=== PATIENT | female | born 1965 | race Caucasian/White ===

== ENCOUNTER 2017-05-15 08:33 | Day surgery (SDC) | payer BC ==
--- NOTE | 2017-05-15 07:45 | HP ---
DATE OF SURGERY: 05/15/2017 HISTORY OF PRESENT ILLNESS: The patient is a 52 year-old with no prior colonoscopy. Occasional pain, occasional blood with wiping not for a long time though otherwise no change in bowel movements. She did have an aunt that had colon cancer in the past. It is felt that she would benefit from screening colonoscopy. Additionally, she had been having some epigastric pain and she is concerned about ulcer. I feel she would benefit additionally from screening colonoscopy. I feel she would benefit from diagnostic upper endoscopy. MEDICATIONS: She takes Estradiol as well as citalopram, vitamin E and some PRN Sudafed. She had taken Medrol Dosepak in the past. ALLERGIES: SULFA. PAST SURGICAL HISTORY: She had broken finger as a child. Outpatient OB procedure in 1987. She denies any prior colonoscopy as far as past surgical history. PAST MEDICAL HISTORY: She denies any chronic illnesses. FAMILY HISTORY: Aunt with colon cancer. SOCIAL HISTORY: No smoking or alcohol abuse. She does drink socially but no abuse. REVIEW OF SYSTEMS: Twelve systems reviewed per admission assessment. No chest pain or palpitations otherwise she has had some epigastric pain. Other systems negative or noncontributory as above and per preadmission questionnaire. PHYSICAL EXAMINATION: GENERAL: No acute distress. HEENT: Sclerae nonicteric. NECK: No JVD. CHEST: Equal excursion, nonlabored breathing. CVS: Regular rate and rhythm. ABDOMEN: Soft. No peritoneal signs. Mild tenderness epigastrium. EXTREMITIES: No significant edema. NEURO: Alert, moving extremities symmetrically. No gross motor deficits noted. RECTAL: Deferred timed to endoscopy exam. IMPRESSION: Need for screening colonoscopy given her age and family history of colon cancer and no prior colonoscopy. Additionally, she is complaining of some epigastric pain. She is concerned about ulcer disease or gastritis. I feel she would benefit from upper endoscopy as well. Risks and benefits explained in detail but not limited to bleeding or infection, small risk of bowel injury or perforation possibly requiring open procedure, small risk of missed or nondiagnosis or incomplete exam possibly requiring barium enema, other studies or procedures, general risk of anesthesia or sedation, risk of bowel prep, postoperative risk of nausea or cramping but not limited to. She understands and agrees to the planned procedure and will proceed with screening colonoscopy as well as diagnostic EGD as an outpatient.
[~2017-05-15 08:33] MED LIST: DIPRIVAN 200 MG/20 ML IV ONE; Ketamine HCl 50 MG/ML IV ONE
[2017-05-15] MEDS ORDERED: Lactated Ringers 1,000 ML IV ONE ×2 (08:55→10:51)
[2017-05-15] MEDS ORDERED: Lactated Ringers 1,000 ML IV SCH (09:00)
[2017-05-15 13:39] VITALS: O2SAT 99
[2017-05-15 13:44] VITALS: BP 140/72; PULSE 79
--- NOTE | 2017-05-17 07:50 | OP ---
SURGERY DATE/TIME: 05/15/2017 1030 PREOPERATIVE DIAGNOSES: 1) Need for screening colonoscopy. 2) History of increasing reflux, need for upper endoscopy. POSTOPERATIVE DIAGNOSES: 1) Erosive gastritis. 2) Small hiatal hernia. 3) Diverticulosis. 4) Small internal and external hemorrhoids. 5) Small erosive versus hyperplastic lesion versus other early polyps rectosigmoid area. PROCEDURES: 1) EGD with cold biopsy small bowel for sprue. 2) Cold biopsy of antrum for Helicobacter pylori. 3) Colonoscopy to terminal ileum. 4) Retrograde ileoscopy. 5) Hot biopsy small sigmoid and rectosigmoid raised lesions versus early polyps. SURGEON: Dr. Ulysses Renteria. SENIOR ART DIRECTOR: Kee Albarado, Medical Student III. ANESTHESIA: MAC. ESTIMATED BLOOD LOSS: Minimal. INDICATIONS: As noted above. Risks and benefits explained in detail but not limited to and consent obtained. DESCRIPTION OF PROCEDURE AND FINDINGS: The patient is taken to the operating room. MAC anesthesia introduced. After official time out and no disagreement with planned procedure, bite block positioned. Video gastroscope easily passed down the esophagus through the patent pylorus to the junction of the second and third portion of the duodenum. Given her symptoms and large ulcer in the stomach, it was felt that she warranted biopsy for celiac sprue. Cold biopsy taken to evaluate for celiac sprue in the stomach. The scope is then slowly and carefully withdrawn. Back in the stomach she did have some erosive gastritis. Erosion was not quite deep enough to call an ulcer in the prepyloric area but definitely erosive gastritis. On retroflex there was small hiatal hernia. There were no signs of any obvious masses or other mucosal lesions. She had small fundal gland polyp biopsied. The scope was straightened. Gastroesophageal junction was about 38 cm. Z-line was fairly crisp. There was slight erythema but no signs of Lozoya's. There were no signs of erosive esophagitis. No signs of any other mucosal lesions on withdrawal of the scope. The patient tolerated the procedure well. Attention was then turned to the colonoscopy. Digital rectal exam did not reveal any rectal masses. She did have some small internal and external hemorrhoids, small skin tag. It was soft. No palpable suspicious nodules on visualization. Video colonoscope inserted and passed up through the tortuous sigmoid, descending and transverse colon and with external pressure around to the ascending colon to cecum. The scope was able to be passed up the terminal ileum. Retrograde ileoscopy was performed. Ileum was grossly unremarkable. The scope was then carefully withdrawn. There were no signs of any large polyps, masses or obstructing lesions. She did have some small diverticula, small raised lesion versus hyperplastic lesion in the sigmoid and rectosigmoid area that were biopsied with hot biopsy forceps. Good hemostasis noted. Otherwise back in the rectum she had small internal and external hemorrhoids. There were no signs of any obvious large polyps, masses or obstructing lesion. The scope is withdrawn. The patient tolerated the procedure well. Given the fact that she had some small raised lesions versus early polyps and the fact that she has family history of colon cancer it was felt that if pathology results end up being benign that she likely would benefit from follow up colonoscopy in five years.
== END 2017-05-15 13:10 | disposition home or self-care (01) ==
LOC: SDC 08:33
PROVIDERS: ATTEND Surgery
PROC: 0DB88ZX Excision of Small Intestine, Via Natural or Artificial Opening Endoscopic, Diagnostic (ICD-10-PCS; principal; 2017-05-15)
PROC: 0DB68ZX Excision of Stomach, Via Natural or Artificial Opening Endoscopic, Diagnostic (ICD-10-PCS; 2017-05-15)
PROC: 0DJD8ZZ Inspection of Lower Intestinal Tract, Via Natural or Artificial Opening Endoscopic (ICD-10-PCS; 2017-05-15)
PROC: 0DBP8ZX Excision of Rectum, Via Natural or Artificial Opening Endoscopic, Diagnostic (ICD-10-PCS; 2017-05-15)
PROC: 0DBN8ZX Excision of Sigmoid Colon, Via Natural or Artificial Opening Endoscopic, Diagnostic (ICD-10-PCS; 2017-05-15)
DX: K29.00 Acute gastritis without bleeding (principal); K44.9 Diaphragmatic hernia without obstruction or gangrene; K57.90 Diverticulosis of intestine, part unspecified, without perforation or abscess without bleeding; K64.8 Other hemorrhoids; K64.4 Residual hemorrhoidal skin tags; Z80.0 Family history of malignant neoplasm of digestive organs
CPT/HCPCS: 00740; 00810; 36415; 88305; J2704

== ENCOUNTER 2021-09-13 09:54 | Day surgery (SDC) | payer BC ==
--- NOTE | 2021-09-13 09:22 | HP ---
DATE OF SURGERY: 09/13/2021 HISTORY OF PRESENT ILLNESS: The patient is a 56-year-old had some bloating, been uncomfortable, some medicine for acid reflux omeprazole and famotidine. She had ultrasound show sludge and cholelithiasis. PAST MEDICAL HISTORY: She has had reflux and anxiety in the past. She had scoliosis in the past. PAST SURGICAL HISTORY: Hernia repair in the past. Endoscopy in the past. MEDICATIONS: Lexapro, famotidine, Prometrium, omeprazole, estradiol. ALLERGIES: SULFA. FAMILY HISTORY: Chronic obstructive pulmonary disease. SOCIAL HISTORY: No smoking. Social alcohol use. REVIEW OF SYSTEMS: Fourteen systems reviewed. No chest pain or palpitations. Other systems negative or noncontributory as above and per preadmission questionnaire. PHYSICAL EXAMINATION: GENERAL: No acute distress. HEENT: Sclerae nonicteric. NECK: No JVD. CHEST: Equal excursion, nonlabored breathing. CVS: Regular rate and rhythm. ABDOMEN: Soft. No peritoneal signs. EXTREMITIES: No significant edema. NEURO: Alert, oriented, moving extremities symmetrically. PSYCH: Appropriate mood and affect. IMPRESSION: Acute exacerbation of chronic cholecystitis, symptomatic cholelithiasis, gallbladder sludge. I feel the patient will benefit from cholecystectomy. She was shown the risk sheet, explained the procedure in detail including but not limited to bleeding or infection, risk of bowel injury or perforation possibly requiring further procedure, risk of missed or nondiagnosis or incomplete exam possibly requiring barium enema, other studies or procedures. General risk of bleeding or infection, risk of bile leak, bile duct injury, retained stone or sludge possibly requiring further procedure either open or ERCP, general risk of anesthesia, deep venous thrombosis, pulmonary embolism, pneumonia, perioperative risk of aches, pains, bloating, constipation and/or loose stools but not limited to, possibility of no improvement in her symptoms possibly requiring further work up and/or testing or referral. She understands, will proceed with laparoscopic cholecystectomy, possible open for acute exacerbation of chronic cholecystitis, symptomatic cholelithiasis and biliary sludge.
[~2021-09-13 09:54] MED LIST changes: -DIPRIVAN 200 MG/20 ML IV ONE; -Ketamine HCl 50 MG/ML IV ONE; +Lactated Ringers 1,000 ML IV ONE; +MEFOXIN 2 GM PREMIX** 2 GM/50 ML ML IV ONE; +Sensorcaine 0.25% 10 ML ONE
[2021-09-13] MEDS ORDERED: MEFOXIN 2 GM PREMIX** 2 GM/50 ML ML IV SCH (10:00)
[2021-09-13] MEDS ORDERED: Lactated Ringers 1,000 ML IV SCH (10:00)
[2021-09-13] MEDS ORDERED: Versed 2 MG/2 ML Injection ONE (11:49)
[2021-09-13] MEDS ORDERED: SUBLIMAZE 250 MCG/5 ML ONE (12:02)
[2021-09-13] MEDS ORDERED: Zemuron 100 MG/10 ML ONE (12:02)
[2021-09-13] MEDS ORDERED: DIPRIVAN 200 MG/20 ML IV ONE (12:02)
[2021-09-13] MEDS ORDERED: Xylocaine-Mpf 2% 5 Ml Vial ONE (12:07)
[2021-09-13] MEDS ORDERED: Zofran 4 MG/2 ML VIAL ONE (12:31)
[2021-09-13] MEDS ORDERED: BRIDION 200MG/2ML IV ONE (12:31)
[2021-09-13] MEDS ORDERED: TORAdol 30 mg Injection ONE (12:44)
[2021-09-13] MEDS ORDERED: SUBLIMAZE 100 MCG/2 ML ONE (13:04)
[2021-09-13] MEDS ORDERED: Hydromorphone 1 mg/ml Injection ONE (13:05)
[2021-09-13] MEDS ORDERED: Zofran 4 MG/2 ML VIAL IV PRN (14:38)
--- NOTE | 2021-09-13 15:09 | OP ---
SURGERY DATE/TIME: 09/13/2021 1204 PREOPERATIVE DIAGNOSIS: Acute exacerbation of chronic cholecystitis, tiny stones and gallbladder sludge, chronic cholecystitis. POSTOPERATIVE DIAGNOSIS: Acute exacerbation of chronic cholecystitis, tiny stones and gallbladder sludge, chronic cholecystitis. PROCEDURE: Laparoscopic cholecystectomy. SURGEON: Dr. Ulysses Renteria. ANESTHESIA: General. ESTIMATED BLOOD LOSS: Minimal. INDICATIONS: As noted above. Risks and benefits explained in detail but not limited to and consent obtained. DESCRIPTION OF PROCEDURE AND FINDINGS: The patient was taken to the operating room. General anesthesia induced. Abdomen prepped and draped in the usual sterile fashion. After official time out and no disagreement with planned procedure, a transverse incision made at the supraumbilical area. Fascia grasped and pulled upward. Veress needle inserted and tested with saline. Pneumoperitoneum accomplished insufflating opening pressure of 0-15. An 11 mm bladeless port and camera inserted without difficulty followed by two - 5 mm right upper quadrant ports and 5 mm epigastric port. The gallbladder had a lot of omental reaction up to it. It took some time to dissect it down. Left lobe of the liver is kind of hanging down in the way but the port was able to be mobilized underneath this. Dissection carried from posterior, lateral to anterior fashion. Slowly and carefully skeletonized cystic duct and infundibular junction slowly and carefully well skeletonized until the critical view obtained both anteriorly and posteriorly this was quite a vascular gallbladder required careful isolating oozing cystic veins and cystic arterial branches directly on the gallbladder wall. They were isolated and clipped as necessary directly on the gallbladder wall as well as the main cystic artery branch isolated directly on the gallbladder wall clipped x3 and divided in usual fashion. Gallbladder slowly and carefully dissected free from its dense attachment to the liver bed staying directly on the gallbladder wall. It took some time but slowly and carefully accomplished. Just prior to releasing from final attachments to the anterior edge of the liver, the liver bed re-inspected. Clips noted in place in cystic duct and cystic artery stump. No signs of any active bleeding or bile leakage. It was felt there was no benefit from drain placement. Gallbladder released from final attachments to anterior edge of the liver, placed in the provided sac, pulled up and out the 10/11 port site in supraumbilical area and passed off. Fascial defect closed with puncture closure device with #1 Vicryl. Liver bed re-inspected one last time. Clips noted to be in place in cystic duct and cystic artery stumps. No signs of any active bleeding or bile leakage. It was felt there was no benefit in drain placement. Irrigating clear. Pneumoperitoneum decompressed. The wound irrigated out. Skin incision closed with 4-0 Vicryl. Steri-Strips and sterile dressing applied. 0.25% Marcaine local injected along the skin incision fascial defect. The patient tolerated the procedure well. There were no immediate complications. There was no family available when I finished the case. I will see if they show up later.
[2021-09-13 17:19] VITALS: BP 136/76; O2SAT 92
[2021-09-13 17:23] VITALS: PULSE 76
== END 2021-09-13 17:10 | disposition home or self-care (01) ==
LOC: SDC 09:54
PROVIDERS: ATTEND Surgery
DX: K81.2 Acute cholecystitis with chronic cholecystitis (principal)
CPT/HCPCS: J0694; J1170; J1885; J2250; J2405; J2704; J3010

== ENCOUNTER 2022-09-12 08:13 | Day surgery (SDC) | payer BC ==
--- NOTE | 2022-09-12 08:25 | HP ---
DATE OF SURGERY: 09/12/2022 HISTORY OF PRESENT ILLNESS: The patient is a 57-year-old had recall reminder, had some small polyps in the past, was recalled for colonoscopy. She also has increased reflux and needs upper endoscopy for further evaluation given increased reflux recently PAST MEDICAL HISTORY: Gastroesophageal reflux disease. Transient ischemic attack. PAST SURGICAL HISTORY: Upper and lower endoscopy in the past. Cholecystectomy in the past. Hernia repair in the past. MEDICATIONS: Vivelle-Dot. Prometrium. Lexapro. Famotidine and another reflux medication name she was not sure about. ALLERGIES: SULFA (HIVES/ITCHING). FAMILY HISTORY: Negative in regards to this problem. SOCIAL HISTORY: She denies smoking, occasional alcohol use. REVIEW OF SYSTEMS: Fourteen systems reviewed. No current chest pain or palpitations. Other systems negative or noncontributory as above and per preadmission questionnaire. PHYSICAL EXAMINATION: GENERAL: No acute distress. HEENT: Sclerae nonicteric. NECK: No JVD. CHEST: Equal excursion, nonlabored breathing. CVS: Regular rate and rhythm. ABDOMEN: Soft. No peritoneal signs. EXTREMITIES: No significant edema. NEURO: Alert, oriented, moving extremities symmetrically. RECTAL: Deferred timed to endoscopy exam. PSYCH: Appropriate mood and affect. IMPRESSION: History of polyps, needs follow up screening colonoscopy. She has had some increased reflux. She is in need of upper endoscopy for further evaluation to evaluate for gastritis, peptic ulcer disease, gastritis or other etiology. General risk of bleeding or infection, risk of bowel injury or perforation possibly requiring open procedure, risk of missed or nondiagnosis or incomplete exam possibly requiring barium swallow, barium enema, other studies or procedures. General risk of anesthesia or sedation, risk of bowel prep. She understands all the above but not limited to. Will proceed with EGD and colonoscopy as an outpatient. She has been shown the risk sheet, explained the risks as noted above but not limited to. Will proceed with EGD or colonoscopy under MAC anesthesia as an outpatient.
[2022-09-12] MEDS ORDERED: Lactated Ringers 1,000 ML IV SCH (08:30)
[2022-09-12] MEDS ORDERED: Lactated Ringers 1,000 ML IV ONE (08:57)
[2022-09-12] MEDS ORDERED: DIPRIVAN 200 MG/20 ML IV ONE (11:16)
[2022-09-12] MEDS ORDERED: Versed 2 MG/2 ML Injection ONE (11:16)
[2022-09-12 12:42] VITALS: BP 140/90; PULSE 94
[2022-09-12 12:54] VITALS: O2SAT 96
--- NOTE | 2022-09-13 10:31 | OP ---
SURGERY DATE/TIME: 09/12/2022 1113 PREOPERATIVE DIAGNOSES: 1) History of polyps. 2) History of increased reflux, need for upper and lower endoscopy. POSTOPERATIVE DIAGNOSES: 1) ASA Class II. 2) Erosive gastritis. 3) Slight erythema otherwise fairly normal appearing esophageal mucosa. 4) Colon polyps. 5) Withdrawal time on colonoscopy about eight minutes. PROCEDURES: 1) EGD with cold biopsy of antrum to evaluate for Helicobacter pylori. 2) Cold biopsy of mid distal esophagus to evaluate for eosinophilic esophagitis. 3) Colonoscopy to cecum. 4) Hot biopsy small, vague raised area of the cecum versus hyperplastic mucosa. 5) Hot biopsy polypectomy rectosigmoid colon polyps x2 and rectum x1. SURGEON: Dr. Ulysses Renteria. ANESTHESIA: MAC. ESTIMATED BLOOD LOSS: Minimal. INDICATIONS: As noted above. Risks and benefits explained in detail and not limited to and consent obtained. DESCRIPTION OF PROCEDURE AND FINDINGS: The patient is taken to the endoscopy room. MAC anesthesia introduced. After official time out and no disagreement with planned procedure, a bite block positioned. Video gastroscope easily passed down the esophagus through the gastroesophageal junction. The scope was passed through the third portion of the duodenum. Third, second and first portion of duodenum grossly unremarkable. The scope pulled back in the stomach. She did have erosive gastritis nothing large enough to cause an ulcer but definitely erosive gastritis. Cold biopsy taken of the antrum for Helicobacter pylori. There is no large hiatal hernia on exam. Scope pulled back to gastroesophageal junction. The Z-line actually appeared pretty crisp. No signs of any Lozoya's. No signs of any erosions. She did have slight erythema in distal esophagus with normal appearing mucosa. Cold biopsy is taken distal esophagus and mid esophagus for eosinophilic esophagitis. Good hemostasis. The patient tolerated the procedure well. The scope is withdrawn. There are no signs of any masses or lesions. Attention is then turned to colonoscopy. Digital rectal exam did not reveal any rectal masses. Prep overall is okay. Video colonoscope inserted and passed through the slightly tortuous sigmoid down around to the cecum. Appendiceal orifice and valve well visualized and photo documented. The scope is carefully withdrawn. There were small vague lesions in the cecum that were biopsied with the hot biopsy forceps. Two small early polyps in the rectosigmoid were removed with hot biopsy forceps and one in the rectum. No signs any large polyps masses or obstructive lesions. The scope is withdrawn. The patient tolerated the procedure well. Findings discussed with the family out in the waiting area. She had erosive gastritis.
== END 2022-09-12 12:45 | disposition home or self-care (01) ==
LOC: SDC 08:13
PROVIDERS: ATTEND Surgery
DX: Z09 Encounter for follow-up examination after completed treatment for conditions other than malignant neoplasm (principal); Z86.010 Personal history of colon polyps; Z87.19 Personal history of other diseases of the digestive system; K29.70 Gastritis, unspecified, without bleeding; K63.5 Polyp of colon
CPT/HCPCS: J2250; J2704